=== PATIENT | male | born 1965 | race Caucasian/White ===

== ENCOUNTER 2017-02-19 07:33 | Outpatient (CLI) | payer OTHER ==
[2017-02-19 11:55] LABS: BUN - BLOOD UREA NITROGEN 20 mg/dL (6-20); CALCIUM 9.9 mg/dL (8.5-10.3); CARBON DIOXIDE - CO2 26 mmol/L (21-32); CHLORIDE 102 mmol/L (101-111); CHOL/HDL RATIO 2.7 (<5.0); CHOLESTEROL 227 mg/dL; CREATININE 1.1 mg/dL (0.6-1.2); GFR - MDRD 71 (>89); GLUCOSE 111 mg/dL (70-100); HDL CHOLESTEROL 83 mg/dL; LDL/HDL RATIO 1.6 (<3.6); POTASSIUM 3.9 mmol/L (3.5-5.0); SODIUM 136 mmol/L (135-145); TRIGLYCERIDES 47 mg/dL; VLDL CHOLESTEROL 9 mg/dL
== END 2017-02-19 07:34 | disposition home or self-care (01) ==
LOC: LAB.F 07:33
PROVIDERS: ATTEND Internal Medicine
DX: Z00.00 Encounter for general adult medical examination without abnormal findings (principal); Z12.11 Encounter for screening for malignant neoplasm of colon; I10 Essential (primary) hypertension
CPT/HCPCS: 36415; 80048; 80061

== ENCOUNTER 2018-01-02 10:18 | Emergency (ER) | payer OTHER ==
[2018-01-02] MEDS ORDERED: PROPARACAINE 0.5% OPHTH DROPS 15 ML RIGHTEYE STA (11:42)
[2018-01-02] MEDS ORDERED: NEOMYCIN/POLYMYX/DEXAMETH OPHTH DROPS 5 ML LEFTEYE STA (11:54)
--- NOTE | 2018-01-02 11:58 | ED Physician Documentation ---
PD HPI OPHTHO - Stated complaint Stated Complaint: L EYE PX - Chief complaint Chief Complaint: Heent - History obtained from History obtained from: Patient, Family - History of Present Illness Timing - onset: Enter time (1899), Last night Timing - duration: Hours Timing - details: Abrupt onset, Still present Location: Left Quality / character: Throbbing, Sharp Associated symptoms: Redness, Tearing, FB sensation Contributing factors: Blunt trauma Similar symptoms before: Has not had sx before Recently seen: Not recently seen - Additional information Additional information: 52-year-old male was mowing his yard and cleaning up yesterday he was wearing his eye protection so he took his eye protection off to clean up some branches he was struck in the face with a branch into the left he has had a foreign body sensation in there since and has a lot of pain in the eye. He was not able to see anything in the eye. Review of Systems Constitutional: denies: Fever Eyes: reports: Irritation. denies: Loss of vision, Decreased vision, Photophobia Ears: denies: Ear pain Nose: denies: Rhinorrhea / runny nose, Congestion Respiratory: denies: Cough GI: denies: Vomiting PD PAST MEDICAL HISTORY - Past Medical History Past Medical History: Yes Cardiovascular: Hypertension - Past Surgical History Past Surgical History: No - Present Medications Home Medications: Ambulatory Orders Medication Instructions Recorded Confirmed Lisinopril 5 mg PO DAILY 01/02/18 01/02/18 Neomycin/Poly/Dex Ophth Drops 1 drops LEFTEYE QID #1 bottle 01/02/18 [Maxitrol Ophth Drops] - Allergies Allergies/Adverse Reactions: Allergies Allergy/AdvReac Type Severity Reaction Status Date / Time No Known Drug Allergies Allergy Verified 01/02/18 10:25 - Social History Does the pt smoke?: No Smoking Status: Never smoker Does the pt drink ETOH?: Yes Does the pt have substance abuse?: No - Immunizations Immunizations are current?: Yes - POLST Patient has POLST: Yes PD ED PE NORMAL - Vitals Vital signs reviewed: Yes (Hypertensive) - General General: Alert and oriented X 3, No acute distress, Well developed/nourished - HEENT HEENT: Atraumatic, PERRL, EOMI, Other (There is injection of the sclera on the left and an obvious corneal abrasion to the lower 1/3 of the cornea. There is no blood in the anterior chamber. There is no foreign body present. 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, No motor deficit, No sensory deficit, Normal speech Eye Opening: Spontaneous Motor: Obeys Commands Verbal: Oriented GCS Score: 15 - Psych Psych: Normal mood, Normal affect Results - Vitals Vitals: Vital Signs - 24 hr 01/02/ 10:22 Temperature 36.7 C Heart Rate 73 Respiratory 18 Rate Blood Pressure 138/88 H O2 Saturation 100 Oxygen O2 Source Room air PD MEDICAL DECISION MAKING - ED course Complexity details: considered differential, d/w patient, d/w family ED course: 52-year-old male with a large corneal abrasion to the inferior portion of the left cornea is administered Maxitrol ophthalmic solution. Departure - Departure Disposition: 01 Home, Self Care Clinical Impression: Corneal abrasion Qualifiers: Encounter type: initial encounter Laterality: left Qualified Code(s): S05.02XA - Injury of conjunctiva and corneal abrasion without foreign body, left eye, initial encounter Condition: Stable Instructions: ED Eye Injury Corneal Abrasion Follow-Up: Fabricio Hui MD [Primary Care Provider] - Prescriptions: Neomycin/Poly/Dex Ophth Drops [Maxitrol Ophth Drops] 1 drops LEFTEYE QID #1 bottle
[2018-01-02 12:12] VITALS: BP 112/79
== END 2018-01-02 12:10 | disposition home or self-care (01) ==
LOC: ED 10:18
DX: S05.02XA Injury of conjunctiva and corneal abrasion without foreign body, left eye, initial encounter (principal); W20.8XXA Other cause of strike by thrown, projected or falling object, initial encounter; Y93.H2 Activity, gardening and landscaping; I10 Essential (primary) hypertension
CPT/HCPCS: 99283; J3490

== ENCOUNTER 2018-02-18 07:09 | Outpatient (CLI) | payer OTHER ==
[2018-02-18 12:24] LABS: BUN - BLOOD UREA NITROGEN 26 mg/dL (6-20); CALCIUM 9.8 mg/dL (8.5-10.3); CARBON DIOXIDE - CO2 25 mmol/L (21-32); CHLORIDE 100 mmol/L (101-111); CHOL/HDL RATIO 3.2 (<5.0); CHOLESTEROL 241 mg/dL; CREATININE 1.1 mg/dL (0.6-1.2); GFR - MDRD 70 (>89); GLUCOSE 111 mg/dL (70-100); HDL CHOLESTEROL 75 mg/dL; LDL CHOLESTEROL,CALCULATED 148 mg/dL; SODIUM 135 mmol/L (135-145); VLDL CHOLESTEROL 18 mg/dL
== END 2018-02-18 07:10 | disposition home or self-care (01) ==
LOC: LAB.F 07:09
PROVIDERS: ATTEND Internal Medicine
DX: I10 Essential (primary) hypertension (principal); R73.01 Impaired fasting glucose; Z12.11 Encounter for screening for malignant neoplasm of colon; E66.3 Overweight; H18.899 Other specified disorders of cornea, unspecified eye
CPT/HCPCS: 36415; 80048; 80061; 83721

== ENCOUNTER 2019-04-03 07:59 | Outpatient (CLI) | payer OTHER ==
[2019-04-03 10:46] LABS: SODIUM 136 mmol/L (135-145)
[2019-04-03 10:47] LABS: BUN - BLOOD UREA NITROGEN 17 mg/dL (6-20); CALCIUM 9.3 mg/dL (8.5-10.3); CARBON DIOXIDE - CO2 21 mmol/L (21-32); CHLORIDE 102 mmol/L (101-111); CHOL/HDL RATIO 2.7 (<5.0); CHOLESTEROL 218 mg/dL; CREATININE 0.9 mg/dL (0.6-1.2); GFR - MDRD 88 (>89); GLUCOSE 96 mg/dL (70-100); HDL CHOLESTEROL 81 mg/dL; LDL CHOLESTEROL,CALCULATED 121 mg/dL; LDL/HDL RATIO 1.5 (<3.6); VLDL CHOLESTEROL 16 mg/dL
[2019-04-04 15:27] LABS: HEPATITIS C ANTIBODY NON-REACTIVE (NON-REACTIVE)
== END 2019-04-03 08:00 | disposition home or self-care (01) ==
LOC: LAB.S 07:59
PROVIDERS: ATTEND Internal Medicine
DX: Z00.00 Encounter for general adult medical examination without abnormal findings (principal); H18.899 Other specified disorders of cornea, unspecified eye; R73.01 Impaired fasting glucose; E66.9 Obesity, unspecified; I10 Essential (primary) hypertension; Z13.6 Encounter for screening for cardiovascular disorders; Z11.59 Encounter for screening for other viral diseases; Z12.11 Encounter for screening for malignant neoplasm of colon
CPT/HCPCS: 36415; 80048; 80061; 83721; 86803

== ENCOUNTER 2020-11-03 12:10 | Outpatient (CLI) | payer OTHER ==
[2020-11-03 18:02] LABS: CALCIUM 9.6 mg/dL (8.5-10.3)
== END 2020-11-03 12:11 | disposition home or self-care (01) ==
LOC: LAB.S 12:10
PROVIDERS: ATTEND Internal Medicine
DX: I10 Essential (primary) hypertension (principal); R73.01 Impaired fasting glucose; Z12.5 Encounter for screening for malignant neoplasm of prostate
CPT/HCPCS: 36415; 80048; 84153

== ENCOUNTER 2020-11-07 08:00 | Outpatient (CLI) | payer OTHER | END 2020-11-07 23:59 | disposition home or self-care (01) | LOC: LAB.R 08:00 | PROVIDERS: ATTEND Internal Medicine | DX: Z12.11 Encounter for screening for malignant neoplasm of colon (principal) | CPT/HCPCS: 82270 ==

== ENCOUNTER 2021-12-30 09:23 | Outpatient (CLI) | payer OTHER ==
[2021-12-30 20:35] LABS: BUN - BLOOD UREA NITROGEN 24 mg/dL (6-20); CALCIUM 9.5 mg/dL (8.5-10.3); CARBON DIOXIDE - CO2 25 mmol/L (21-32); CHLORIDE 90 mmol/L (101-111); CHOL/HDL RATIO 2.1 (<5.0); CHOLESTEROL 199 mg/dL; CREATININE 0.9 mg/dL (0.6-1.2); GFR - MDRD 87 (>89); GLUCOSE 115 mg/dL (70-100); HDL CHOLESTEROL 94 mg/dL; LDL CHOLESTEROL,CALCULATED 91 mg/dL; SODIUM 127 mmol/L (135-145); TRIGLYCERIDES 68 mg/dL; VLDL CHOLESTEROL 14 mg/dL
== END 2021-12-30 09:24 | disposition home or self-care (01) ==
LOC: LAB.S 09:23
PROVIDERS: ATTEND Internal Medicine
DX: I10 Essential (primary) hypertension (principal); R73.01 Impaired fasting glucose; Z12.5 Encounter for screening for malignant neoplasm of prostate; Z13.220 Encounter for screening for lipoid disorders
CPT/HCPCS: 36415; 80048; 80061; 81599; 83036; 83721; 84153

== ENCOUNTER 2024-05-26 08:38 | Outpatient (CLI) | payer OTHER ==
[2024-05-26 15:35] LABS: CREATININE 0.9 mg/dL (0.6-1.3); POTASSIUM 3.8 mmol/L (3.5-4.5)
[2024-05-26 20:23] LABS: ESTIMATED AVERAGE GLUCOSE 134 mg/dL (70-100); HEMOGLOBIN A1c% 6.3 % (4.27-6.07)
== END 2024-05-26 08:39 | disposition home or self-care (01) ==
LOC: LAB.S 08:38
PROVIDERS: ATTEND Internal Medicine
DX: I10 Essential (primary) hypertension (principal); Z12.5 Encounter for screening for malignant neoplasm of prostate; Z12.11 Encounter for screening for malignant neoplasm of colon; Z13.1 Encounter for screening for diabetes mellitus
CPT/HCPCS: 36415; 80048; 83036; 84153

== ENCOUNTER 2024-05-29 07:00 | Outpatient (CLI) | payer OTHER ==
[2024-05-30 12:56] LABS: FECAL OCCULT BLOOD (FIT) NEGATIVE (NEGATIVE)
== END 2024-05-29 23:59 | disposition home or self-care (01) ==
LOC: LAB.S 07:00
PROVIDERS: ATTEND Internal Medicine
DX: I10 Essential (primary) hypertension (principal); Z12.11 Encounter for screening for malignant neoplasm of colon; Z12.5 Encounter for screening for malignant neoplasm of prostate; Z13.1 Encounter for screening for diabetes mellitus
CPT/HCPCS: 82274